=== PATIENT | female | born 2000 | race African-American/Black ===

== ENCOUNTER 2021-08-14 21:28 | Emergency (ER) | payer SELFPAY ==
[2021-08-14] MEDS ORDERED: ACETAMINOPHEN 500 MG TAB ONE (23:03)
[2021-08-14 23:33] LABS: Urine Blood 1+ (Negative); Urine Glucose Negative (Negative); Urine Protein Negative (Negative); Urine pH 6.5 (5.0-7.0)
[2021-08-14 23:34] LABS: SARS-COV-2 RT PCR POSITIVE (NEGATIVE)
--- NOTE | 2021-08-14 23:59 | ER ---
Nurse's Notes [facility] Name: Mary Eldridge Age: 20 yrs Sex: Female : 2000 Arrival Date: 08/14/2021 Time: 21:32 Bed 20 Private MD: Diagnosis: COVID;UTI/ Urinary tract infection, site not specified Presentation: 08/14 22:00 Chief complaint: Patient states: Pt c/o cough and dizziness onset Friday. Pt reports bc5 First dose covid-19 vaccine Friday. A\T\O x 3, RR is even and unlabored, speaking in clear and complete sentences at this time. Coronavirus screen: Vaccine status: Patient reports receiving the 1st dose of the Covid vaccine. Date August 10, 2021. Ebola Screen: Patient negative for fever greater than or equal to 101.5 degrees Fahrenheit, and additional compatible Ebola Virus Disease symptoms Patient denies exposure to infectious person. Patient denies travel to an Ebola-affected area in the 21 days before illness onset. No symptoms or risks identified at this time. Initial Sepsis Screen: Does the patient meet any 2 criteria? No. Patient's initial sepsis screen is negative. Does the patient have a suspected source of infection? No. Patient's initial sepsis screen is negative. Risk Assessment: Do you want to hurt yourself or someone else? Patient reports no desire to harm self or others. Onset of symptoms was August 11, 2021 at 00:00. 22:00 Method Of Arrival: Ambulatory bc5 22:00 Acuity: JUMA 3 bc5 Triage Assessment: 22:13 General: Appears in no apparent distress. Behavior is calm, cooperative, appropriate bc5 for age. Pain: Denies pain. 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 - Social history:: Smoking status: Patient denies any tobacco usage or history of. Screenin:13 Abuse screen: Denies threats or abuse. Denies injuries from another. Nutritional bc5 screening: No deficits noted. Tuberculosis screening: No symptoms or risk factors identified. Fall Risk None identified. Vital Signs: 22:00 BP 135 / 83; Pulse 80; Resp 16; Temp 99(O); Pulse Ox 99% ; Weight 90.72 kg (R); Height [facility] 5 ft. 7 in. (170.18 cm) (R); Pain 0/10; 23:45 Pain 3/10; 5 08/15 00:34 BP 101 / 75; Pulse 81; Resp 15; Temp 98.8(O); Pulse Ox 100% on R/A; Pain 0/10; [facility] 08/14 22:00 Body Mass Index 31.32 (90.72 kg, 170.18 cm) [facility] ED Course: 08/14 21:32 Patient arrived in ED. bp1 21:51 Liam Norman MD is Attending Physician. [facility] 22:12 Triage completed. 5 22:14 Arm band placed on right wrist. 5 22:14 No provider procedures requiring assistance completed. [facility] 22:15 Patient has correct armband on for positive identification. Bed in low position. Call [facility] light in reach. Side rails up X 1. 22:40 Antonia Whitfield, GLEN is Primary Nurse. 5 22:43 Antonia Whitfield RN is Primary Nurse. [facility] 22:43 Influenza Screen (a \T\ B) Sent. [facility] 22:47 Chest Pa And Lat (2 Views) XRAY In Process Unspecified. EDMS 23:56 Vivek Dubose MD is Referral Physician. [facility] 08/15 00:35 Patient did not have IV access during this emergency room visit. 5 Administered Medications: 08/14 22:42 Drug: Tylenol 1000 mg Route: PO; 5 23:45 Follow up: Pain 3/10 Adult [facility] 23:45 Drug: KeFLEX (cephalexin) 500 mg Route: PO; 5 Outcome: 23:58 Discharge ordered by . [facility] 08/15 00:34 Discharged to home ambulatory. 5 Condition: good Discharge instructions given to Instructed on discharge instructions, follow up and referral plans. medication usage. 00:35 Patient left the ED. [facility] Signatures: Dispatcher [employer] EDCO Emilia Mayorga bp1 Liam Norman MD MD [facility] Antonia Whitfield, RN RN [facility] Corrections: (The following items were deleted from the chart) 08/14 22:44 22:43 CORONAVIRUS+MR.LAB.BRZ drawn and sent. bc5 EDMS
--- NOTE | 2021-08-14 23:59 | EDPHYS ---
Physician Documentation [facility] Name: Mary Eldridge Age: 20 yrs Sex: Female : 2000 Arrival Date: 08/14/2021 Time: 21:32 Bed 20 Private MD: ED Physician Liam Norman HPI: 08/14 21:50 This 20 yrs old Black Female presents to ER via Ambulatory with complaints of Cough. mh7 21:50 The patient or guardian reports cough, that is intermittent, described as moderate, mh7 with no sputum. Onset: The symptoms/episode began/occurred 5 day(s) ago. Severity of symptoms: At their worst the symptoms were mild, 4 day(s) ago, in the emergency department the symptoms are unchanged. Modifying factors: The symptoms are alleviated by nothing, the symptoms are aggravated by nothing. Associated signs and symptoms: Pertinent positives: rhinorrhea, Pertinent negatives: chest pain, diarrhea, ear ache, fever, nausea, sore throat, vomiting. Patient reports cough that started about 5 days ago after receiving her first Covid vaccination. She also reports a runny nose. Denies any fever, headache, chest pain, abdominal pain, shortness of breath, nausea, vomiting, diarrhea, muscle aches. Denies any sick contacts or recent travel.. 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 - Social history:: Smoking status: Patient denies any tobacco usage or history of. ROS: 21:50 Constitutional: Negative for fever, chills, and weight loss, Eyes: Negative for injury, mh7 pain, redness, and discharge, ENT: Negative for injury, pain, and discharge, Neck: Negative for injury, pain, and swelling, Cardiovascular: Negative for chest pain, palpitations, and edema, Abdomen/GI: Negative for abdominal pain, nausea, vomiting, diarrhea, and constipation, Back: Negative for injury and pain, : Negative for injury, bleeding, discharge, and swelling, MS/Extremity: Negative for injury and deformity, Skin: Negative for injury, rash, and discoloration, Neuro: Negative for headache, weakness, numbness, tingling, and seizure, Psych: Negative for depression, anxiety, suicide ideation, homicidal ideation, and hallucinations, Allergy/Immunology: Negative for hives, rash, and allergies, Endocrine: Negative for neck swelling, polydipsia, polyuria, polyphagia, and marked weight changes, Hematologic/Lymphatic: Negative for swollen nodes, abnormal bleeding, and unusual bruising. Exam: 21:50 Constitutional: This is a well developed, well nourished patient who is awake, alert, mh7 and in no acute distress. Head/Face: Normocephalic, atraumatic. Eyes: Pupils equal round and reactive to light, extra-ocular motions intact. Lids and lashes normal. Conjunctiva and sclera are non-icteric and not injected. Cornea within normal limits. Periorbital areas with no swelling, redness, or edema. Neck: Trachea midline, no thyromegaly or masses palpated, and no cervical lymphadenopathy. Supple, full range of motion without nuchal rigidity, or vertebral point tenderness. No Meningismus. Chest/axilla: Normal chest wall appearance and motion. Nontender with no deformity. No lesions are appreciated. Cardiovascular: Regular rate and rhythm with a normal S1 and S2. No gallops, murmurs, or rubs. Normal PMI, no JVD. No pulse deficits. Respiratory: Lungs have equal breath sounds bilaterally, clear to auscultation and percussion. No rales, rhonchi or wheezes noted. No increased work of breathing, no retractions or nasal flaring. Abdomen/GI: Soft, non-tender, with normal bowel sounds. No distension or tympany. No guarding or rebound. No evidence of tenderness throughout. Back: No spinal tenderness. No costovertebral tenderness. Full range of motion. Skin: Warm, dry with normal turgor. Normal color with no rashes, no lesions, and no evidence of cellulitis. MS/ Extremity: Pulses equal, no cyanosis. Neurovascular intact. Full, normal range of motion. Neuro: Awake and alert, GCS 15, oriented to person, place, time, and situation. Cranial nerves II-XII grossly intact. Motor strength 5/5 in all extremities. Sensory grossly intact. Cerebellar exam normal. Normal gait. Psych: Awake, alert, with orientation to person, place and time. Behavior, mood, and affect are within normal limits. Vital Signs: 22:00 BP 135 / 83; Pulse 80; Resp 16; Temp 99(O); Pulse Ox 99% ; Weight 90.72 kg (R); Height [facility] 5 ft. 7 in. (170.18 cm) (R); Pain 0/10; 23:45 Pain 3/10; [facility] 08/15 00:34 BP 101 / 75; Pulse 81; Resp 15; Temp 98.8(O); Pulse Ox 100% on R/A; Pain 0/10; [facility] 08/14 22:00 Body Mass Index 31.32 (90.72 kg, 170.18 cm) 5 MDM: 08/14 23:54 Differential Diagnosis: Bronchitis Influenza Upper Respiratory Infection Allergic [facility] Rhinitis Viral Syndrome Pneumonia. Data reviewed: vital signs, nurses notes, lab test result(s), Flu: negative Covid positive, radiologic studies, plain films. Data interpreted: Pulse oximetry: on room air is 99 %. Interpretation: normal. 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 Response to treatment: the patient's symptoms have markedly improved after treatment. 23:58 Patient medically screened. [facility] 08/14 22:05 Order name: Influenza Screen (a \T\ B) [facility] 08/14 22:24 Order name: Urine --Ancillary (enter results) [facility] 08/14 23:32 Order name: Urine Dipstick-Ancillary; Complete Time: 23:40 [facility] 08/14 23:34 Order name: COVID-19/FLU A+B; Complete Time: 23:40 [facility] 08/14 22:05 Order name: Chest Pa And Lat (2 Views) XRAY [facility] 08/14 22:31 Order name: Urine Dipstick-Ancillary (obtain specimen); Complete Time: 22:42 [facility] 08/14 22:31 Order name: Urine Test (obtain specimen); Complete Time: 22:43 [facility] Administered Medications: 22:42 Drug: Tylenol 1000 mg Route: PO; [facility] 23:45 Follow up: Pain 3/10 Adult [facility] 23:45 Drug: KeFLEX (cephalexin) 500 mg Route: PO; bc5 Disposition Summary: 08/14/21 23:58 Discharge Ordered Location: Home [facility] Problem: new [facility] Symptoms: have improved [facility] Condition: Stable [facility] Diagnosis - COVID 7 - UTI/ Urinary tract infection, site not specified [facility] Followup: [facility] - With: Private Physician - When: 1 - 2 days - Reason: Worsening of condition, Recheck today's complaints, Continuance of care, Re-evaluation by your physician Followup: [facility] - With: Vivek Dubose MD - When: 1 - 2 days - Reason: Worsening of condition, Recheck today's complaints Discharge Instructions: - Form - Return To Work ds4 - Discharge Summary Sheet [facility] - Urinary Tract Infection, Adult, [id number] [facility] - COVID-19 [facility] - COVID-19 Frequently Asked Questions [facility] - COVID-19: Quarantine vs. Isolation - [place] [id number] Forms: - Medication Reconciliation Form [facility] - Thank You Letter [facility] - Antibiotic Education [facility] - Prescription Opioid Use [facility] - Work release form mw2 Prescriptions: - Cephalexin 500 mg Oral Capsule - take 1 capsule by ORAL route every 12 hours for 7 days; 14 capsule; Refills: 0, [facility] Product Selection Permitted - Tessalon Perles 100 mg Oral Capsule - take 1 capsule by ORAL route every 8 hours As needed; 15 capsule; Refills: 0, 7 Product Selection Permitted Signatures: Dispatcher [employer] Liam Dai MD MD [facility] Antonia Whitfield RN RN 5 Corrections: (The following items were deleted from the chart) 22:43 22:07 Influenza Screen (A ordered. EDMS EDMS 22:44 22:05 CORONAVIRUS+MR.LAB.BRZ ordered. EDMS EDMS
[2021-08-15] MEDS ORDERED: CEPHALEXIN 250 MG CAP ONE (00:09)
[2021-08-15 00:54] VITALS: BP 101/75; TEMP 98.8; O2SAT 100
--- NOTE | 2021-08-15 07:14 | RAD REPORT ---
EXAM DESCRIPTION: RAD - Chest Pa And Lat (2 Views) - 08/14/2021 10:48 pm CLINICAL HISTORY: COUGH COMPARISON: No comparisons FINDINGS: Lines: None. Lungs: No evidence of edema or pneumonia. Pleural: No significant pleural effusions or pneumothorax. Cardiac: The heart size is within normal limits. Bones: No acute fractures. Other: IMPRESSION: No acute cardiopulmonary disease.
== END 2021-08-15 00:35 | disposition home or self-care (01) ==
LOC: ER 21:28
DX: U07.1 COVID-19 (principal); N39.0 Urinary tract infection, site not specified
CPT/HCPCS: 0240U; 71046; 81003; 81025; 99283

== ENCOUNTER 2024-05-04 05:19 | Emergency (ER) | payer SELFPAY ==
[2024-05-04] MEDS ORDERED: CYCLOBENZAPRINE 10 MG TAB ONE (06:40)
[2024-05-04] MEDS ORDERED: KETOROLAC 30 MG/ML INJ ONE (06:40)
[2024-05-04 07:04] LABS: Specific Gravity > 1.030 (1.005-1.030)
--- NOTE | 2024-05-04 08:12 | RAD REPORT ---
EXAM DESCRIPTION: CT - Spine Lumbar Wo Con - 05/04/2024 7:39 am CLINICAL HISTORY: trauma COMPARISON: No comparisons TECHNIQUE: Axial noncontrast CT imaging of the lumbar spine was performed with coronal and sagittal re-formatted images. All CT scans are performed using dose optimization technique as appropriate and may include automated exposure control or mA/KV adjustment according to patient size. FINDINGS: No acute lumbar spine fracture seen. No aggressive marrow pattern or malalignment. Paraspinal tissues are normal in thickness. No paraspinal abscess or hematoma seen. Intervertebral disc disease assessment is inherently limited by CT. Within these limitations, no high -grade canal stenosis suspected. Small central disc protrusion along the central and right subarticu lar zone at L4-5 contributing to minimal right neural foraminal narrowing. IMPRESSION: No acute lumbar spine fracture or subluxation. Mild disc bulging at L4-5 contributing to minimal right neural foraminal narrowing. Please consider M RI follow-up for assessment of disc disease and impingement of the neural structures, if clinically i ndicated.
--- NOTE | 2024-05-04 08:25 | ER ---
Nurse's Notes [facility] Name: Mary Eldridge Age: 23 yrs Sex: Female : 2000 Arrival Date: 05/04/2024 Time: 05:19 Bed 16 Private MD: Diagnosis: Fall on same level, unspecified;Low back pain;Strain of muscle, fascia and tendon of lower back;Other intervertebral disc disorders, lumbar region Presentation: 05/04 06:13 Chief complaint: Patient states: low back pain and R shoulder pain after falling at work. Coronavirus screen: Client denies travel out of the [place] in the last 14 days. Ebola Screen: Patient denies exposure to infectious person. Patient denies travel to an Ebola-affected area in the 21 days before illness onset. Initial Sepsis Screen: Does the patient meet any 2 criteria? No. Patient's initial sepsis screen is negative. Does the patient have a suspected source of infection? No. Patient's initial sepsis screen is negative. Risk Assessment: Do you want to hurt yourself or someone else? Patient reports no desire to harm self or others. Onset of symptoms was May 04, 2024. 06:13 Method Of Arrival: Ambulatory ss 06:13 Acuity: JUMA 4 ss Triage Assessment: 06:13 General: Appears in no apparent distress. Behavior is calm, cooperative. Neuro: Level ss of Consciousness is awake, alert, obeys commands. Respiratory: Airway is patent Respiratory effort is even, unlabored. Musculoskeletal: Circulation, motion, and sensation intact. Range of motion: intact in all extremities. Historical: - Allergies: 06:13 No Known Allergies; ss - Home Meds: 06:13 None [Active]; ss - PMHx: 06:13 None; ss - PSHx: 06:13 None; ss - Immunization history:: Adult Immunizations unknown. - Infectious Disease History:: Denies. - Family history:: not pertinent. - Social history:: Smoking status: unknown. Screenin:00 [facility] ED Fall Risk Assessment (Adult) History of falling in the last 3 months, jw7 including since admission Yes- single mechanical fall (1 pt) Confusion or Disorientation No (0 pts) Intoxicated or Sedated No (0 pts) Impaired Gait No (0 pts) Mobility Assist Device Used Altered Elimination No (0 pt) Score/Fall Risk Level 0 - 2 = Low Risk Oriented to surroundings, Maintained a safe environment, Educated pt \T\ family on fall prevention, incl call for assistance when getting out of bed. Abuse screen: Denies threats or abuse. Denies injuries from another. Nutritional screening: No deficits noted. Tuberculosis screening: No symptoms or risk factors identified. Assessment: 06:00 General: Appears in no apparent distress. comfortable, Behavior is calm, cooperative, jw7 appropriate for age. 06:00 Pain: Complains of pain in low back area and right shoulder Pain currently is 6 out of jw7 10 on a pain scale. Quality of pain is described as throbbing, Pain began suddenly, Is continuous. Neuro: Level of Consciousness is awake, alert, obeys commands, Oriented to person, place, time, situation, Appropriate for age. 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 Respiratory: Airway is patent Trachea midline Respiratory effort is even, unlabored, Respiratory pattern is regular, symmetrical, Breath sounds are clear bilaterally. GI: Abdomen is round non-distended, Bowel sounds present X 4 quads. Abd is soft and non tender X 4 quads. : No deficits noted. No signs and/or symptoms were reported regarding the genitourinary system. EENT: No deficits noted. No signs and/or symptoms were reported regarding the EENT system. Derm: Skin is intact, is healthy with good turgor, Skin is dry, Skin is normal, Skin temperature is warm. Musculoskeletal: Circulation, motion, and sensation intact. Range of motion: intact in all extremities. 08:02 Reassessment: Patient appears in no apparent distress at this time. Patient is alert, bp oriented x 3, equal unlabored respirations, skin warm/dry/pink. Vital Signs: 06:13 BP 117 / 77; Pulse 65; Resp 16; Temp 98.2(O); Pulse Ox 100% on R/A; Weight 95.25 kg; ss Height 5 ft. 7 in. ; Pain 8/10; 06:13 Body Mass Index 32.89 (95.25 kg, 170.18 cm) 06:13 Pain Scale: Adult ED Course: 05:25 Patient arrived in ED. gm2 05:26 Raymond Schafer MD is Attending Physician. rt 06:00 Patient has correct armband on for positive identification. Bed in low position. Call jw7 light in reach. 06:00 Provided Education on: Use of Call Light. jw7 06:13 Triage completed. ss 06:13 Arm band placed on right wrist. ss 06:26 Sujatha Mead RN is Primary Nurse. jw7 06:53 No provider procedures requiring assistance completed. jw7 07:13 Primary Nurse role handed off by Sujatha Mead RN bp 07:13 Jose Connors RN is Primary Nurse. bp 07:18 Attending Physician role handed off by Raymond Schafer MD live 07:18 Titus Johns MD is Attending Physician. live 07:40 CT Lumbar Spine Wo Con In Process Unspecified. EDMS 08:27 Kamran Weir MD is Referral Physician. live 09:01 Patient did not have IV access during this emergency room visit. bp Administered Medications: 06:49 Drug: Ketorolac IM 15 mg IM once Route: IM; Site: left deltoid; jw7 09:00 Follow up: Response: No adverse reaction bp 06:49 Drug: Cyclobenzaprine PO 10 mg PO once Route: PO; jw7 09:00 Follow up: Response: No adverse reaction bp 08:30 Drug: Dexamethasone IM 10 mg IM once Route: IM; Site: left deltoid; bp 09:00 Follow up: Response: No adverse reaction bp Medication: 06:53 VIS not applicable for this client. jw7 Outcome: 08:25 Discharge ordered by . live 09:01 Discharged to home ambulatory, bp 09:01 Condition: stable 09:01 Discharge instructions given to patient, Instructed on discharge instructions, follow up and referral plans. medication usage, Demonstrated understanding of instructions, follow-up care, medications, Prescriptions given X 3, 09:01 Patient left the ED. bp Signatures: Dispatcher [employer] EDNH Titus Johns MD MD cha Blanchard, Shelby, RN RN Jose Connors, GLEN RN bp Sujatha Mead, GLEN RN jw7 Raymond Schafer MD MD rt Nevin Eli gm2
--- NOTE | 2024-05-04 08:25 | EDPHYS ---
Physician Documentation [facility] Name: Mary Eldridge Age: 23 yrs Sex: Female : 2000 Arrival Date: 05/04/2024 Time: 05:19 Bed 16 Private MD: ED Physician Titus Johns HPI: 05/04 06:15 This 23 yrs old Black Female presents to ER via Ambulatory with complaints of Back rt Pain, Fall Injury. 06:15 Patient presents to the ED with back injury. The patient had a mechanical fall, falling rt on the right side of her back, hitting on a crate. This happened about 1 AM. Patient reports that the pain was initially better, then radiated superiorly. Denies other acute complaints, symptoms are moderate in severity, aching nature, radiating, no other aggravating or alleviating factors.. Historical: - Allergies: 06:13 No Known Allergies; ss - Home Meds: 06:13 None [Active]; ss - PMHx: 06:13 None; ss - PSHx: 06:13 None; ss - Immunization history:: Adult Immunizations unknown. - Infectious Disease History:: Denies. - Family history:: not pertinent. - Social history:: Smoking status: unknown. ROS: 06:15 Constitutional: Negative for fever, chills, and weight loss, Cardiovascular: Negative rt for chest pain, palpitations, and edema, Respiratory: Negative for shortness of breath, cough, wheezing, and pleuritic chest pain, Abdomen/GI: Negative for abdominal pain, nausea, vomiting, diarrhea, and constipation, MS/Extremity: Negative for injury and deformity, Skin: Negative for injury, rash, and discoloration, Neuro: Negative for headache, weakness, numbness, tingling, and seizure, 06:15 Back: Positive for pain at rest, pain with movement, Exam: 06:15 Constitutional: This is a well developed, well nourished patient who is awake, alert, rt and in no acute distress. Head/Face: Normocephalic, atraumatic. Neck: Trachea midline, no thyromegaly or masses palpated, and no cervical lymphadenopathy. Supple, full range of motion without nuchal rigidity, or vertebral point tenderness. No Meningismus. Chest/axilla: Normal chest wall appearance and motion. Nontender with no deformity. No lesions are appreciated. Cardiovascular: Regular rate and rhythm with a normal S1 and S2. No gallops, murmurs, or rubs. Normal PMI, no JVD. No pulse deficits. Respiratory: Lungs have equal breath sounds bilaterally, clear to auscultation and percussion. No rales, rhonchi or wheezes noted. No increased work of breathing, no retractions or nasal flaring. Abdomen/GI: Soft, non-tender, with normal bowel sounds. No distension or tympany. No guarding or rebound. No evidence of tenderness throughout. Skin: Warm, dry with normal turgor. Normal color with no rashes, no lesions, and no evidence of cellulitis. MS/ Extremity: Pulses equal, no cyanosis. Neurovascular intact. Full, normal range of motion. Neuro: Awake and alert, GCS 15, oriented to person, place, time, and situation. Cranial nerves II-XII grossly intact. Motor strength 5/5 in all extremities. Sensory grossly intact. Cerebellar exam normal. Normal gait. 06:15 Back: Lower lumbar midline, right-sided tenderness, no step-offs, no other focal areas of tenderness, Vital Signs: 06:13 BP 117 / 77; Pulse 65; Resp 16; Temp 98.2(O); Pulse Ox 100% on R/A; Weight 95.25 kg; ss Height 5 ft. 7 in. ; Pain 8/10; 06:13 Body Mass Index 32.89 (95.25 kg, 170.18 cm) ss 06:13 Pain Scale: Adult ss MDM: 06:11 Patient medically screened. rt 07:20 Differential diagnosis: Fatigue Fracture ruptured disc, spinal injury, live Ureterolithiasis. Data reviewed: vital signs, nurses notes, lab test result(s), urinalysis, radiologic studies. Consideration of Admission/Observation Escalation of care including admission/observation considered. I considered the following discharge prescriptions or medication management in the emergency department Medications were administered in the Emergency Department. See MAR. Test considered but Not performed: CT: ct lumbar. 05/04 06:49 Order name: Test, Urine; Complete Time: 07:19 jw7 05/04 06:15 Order name: CT Lumbar Spine Wo Con; Complete Time: 08:23 rt Administered Medications: 06:49 Drug: Ketorolac IM 15 mg IM once Route: IM; Site: left deltoid; jw7 09:00 Follow up: Response: No adverse reaction bp 06:49 Drug: Cyclobenzaprine PO 10 mg PO once Route: PO; jw7 09:00 Follow up: Response: No adverse reaction bp 08:30 Drug: Dexamethasone IM 10 mg IM once Route: IM; Site: left deltoid; bp 09:00 Follow up: Response: No adverse reaction bp Disposition Summary: 05/04/24 08:25 Discharge Ordered Notes: Location: Home live Problem: new live Symptoms: have improved live Condition: Stable live Diagnosis - Fall on same level, unspecified live - Low back pain live - Strain of muscle, fascia and tendon of lower back live - Other intervertebral disc disorders, lumbar region live Followup: live - With: Private Physician - When: 2 - 3 days - Reason: Recheck today's complaints, Continuance of care, Re-evaluation by your physician Followup: live - With: Kamran Weir MD - When: 2 - 3 days - Reason: Recheck today's complaints, Re-evaluation by your physician Discharge Instructions: - Discharge Summary Sheet live - Acute Back Pain, Adult live - Fall Prevention in the Home, Adult live - Musculoskeletal Pain live - Fall Prevention in the Home, Adult, [id number] live - Herniated Disk, [id number] Forms: - Medication Reconciliation Form [facility] - Antibiotic Education live - Prescription Opioid Use [facility] - Patient Portal Instructions [facility] - Leadership Thank You Letter [facility] Prescriptions: - dexamethasone 4 mg Oral tablet - take 1 tablet ORAL route once daily; 4 tablet; Refills: 0, Product Selection [facility] Permitted - Ibuprofen 600 mg Oral Tablet - take 1 tablet ORAL route every 6 hours As needed take with food; 30 tablet; [facility] Refills: 0, Product Selection Permitted - Cyclobenzaprine 5 mg Oral Tablet - take 1 tablet ORAL route 3 times per day As needed; 15 tablet; Refills: 0, [facility] Product Selection Permitted Signatures: Dispatcher [employer] Titus Canales MD MD cha Blanchard, Shelby, RN RN Jose Connors RN RN bp Waits, Jodi, RN RN jwRaymond Patel MD MD rt
[2024-05-04] MEDS ORDERED: dexAMETHasone 10 MG/ML VIAL ONE (08:34)
[2024-05-04 09:14] VITALS: BP 117/77; TEMP 98.2; O2SAT 100
== END 2024-05-04 09:01 | disposition home or self-care (01) ==
LOC: ER 05:19
DX: S39.012A Strain of muscle, fascia and tendon of lower back, initial encounter (principal); M51.86 Other intervertebral disc disorders, lumbar region; W18.30XA Fall on same level, unspecified, initial encounter
CPT/HCPCS: 72131; 81025; 96372; 99284; J1100